=== PATIENT | male | born 1990 | race Caucasian/White ===

== ENCOUNTER 2023-08-28 03:32 | Emergency (ER) | payer OTHER, SELFPAY ==
[2023-08-28 03:33] VITALS: BP 139/85; PULSE 95; RESP 18; TEMP 36.3; O2SAT 95; BMI 35.1
[2023-08-28 05:07] LABS: Bacteria 0 SEEN /hpf (None Seen); Mucous, Urine 0 SEEN /hpf (<or=2+)
[2023-08-28 05:09] LABS: Color, Urine Yellow (Yellow); Glucose, Dipstick Normal (Normal); Ketone-Dipstick Negative (Negative); Leukocyte Esterase-Dipstick 100 /ul (Negative); Nitrite-Dipstick Negative (Negative); Occult Blood-Urine 25 /ul (Negative); Protein-Dipstick 30 mg/dl (Negative); Specific Gravity, Urine 1.025 (1.002-1.030); Urine Bilirubin Dipstick Negative (Negative); Urine Clarity Clear (Clear); Urine Urobilinogen Normal (Normal)
[2023-08-28 05:16] LABS: Red Blood Cells-Urine 5-10 SEEN /hpf (0-5); Squamous Epithelial Cells - UA 0-5 SEEN /hpf (0-5); White Blood Cells 10-25 SEEN /hpf (0-5)
--- NOTE | 2023-08-28 05:31 | EX.ED.DYSGE1 ---
HPI History of Present Illness Chief Complaint: Complaint Informant: patient Narrative Narrative: Patient is a 33-year-old male with past medical history of hypothyroidism. He states that over the last 2 to 3 days he has noticed increased frequency of urination and dysuria. He states there is no penile discharge or lesions or testicular swelling. He denies any trauma but states he is concerned he may have developed an STD and with this comes in for evaluation. [facility] Medical History (Updated 08/29/23 @ 08:[address] Paulo Gloria, DO) Hypothyroid Home Medications ?Medication ?Instructions ?Recorded ?Last Taken ?Type doxycycline hyclate 100 mg capsule 100 mg PO BID 7 days #14 caps 08/28/23 Unknown Rx levothyroxine 50 mcg capsule 50 mcg PO DAILY 08/28/23 Unknown History Allergy/AdvReac Type Severity Reaction Status Date / Time No Known Allergies Allergy Verified 08/28/23 03:38 Social History Smoking Status: Never smoker ROS ROS ED Constitutional Constitutional ED: Denies chills or fever(s) ENT ENT ED: Denies sore throat Cardiovascular Cardiovascular: Denies chest pain Respiratory/Chest Respiratory/Chest: Denies cough or dyspnea Gastrointestinal Gastrointestinal: Denies abdominal pain, diarrhea, nausea or vomiting Genitourinary Genitourinary ED: Reports dysuria and urinary frequency; Denies hematuria Musculoskeletal Musculoskeletal: Denies back pain or myalgias Integumentary Denies rash Neurologic Neurologic: Denies headache(s) Hematologic/Lymphatic Hematologic/Lymphatic: Denies easy bleeding or easy bruising EXAM Physical Exam Const Vital Signs: 08/28/23 03:33 Temperature 97.4 F L Temperature Source Temporal Pulse Rate 95 Respiratory Rate 18 Blood Pressure 139/85 H Blood Pressure Mean 103 Pulse Ox 95 Oxygen Delivery Method Room Air Positive well nourished, well developed and obese General Appearance ED: well developed; Negative for pallor Nutritional Appearance: obese HEENT HEENT Narrative: Normocephalic atraumatic Eyes PERRL and EOMs intact bilaterally General Eye ED: Negative for scleral icterus Neck supple Resp normal respiratory effort and clear to auscultation bilaterally Cardio regular rate and regular rhythm GI normal to inspection, nondistended, normoactive bowel sounds, non-tender, non-distended and no masses Auscultation: normoactive bowel sounds Palpation: soft Narrative: Patient deferred Back/Spine no CVA tenderness Extremity normal to inspection Neuro oriented x3, CN's II-XII intact bilaterally and no sensory deficits noted Sensorium / Orientation: alert Motor Exam: strength 5/5 throughout Psych mental status grossly normal Skin no rashes or lesions noted General Skin Exam: Negative for jaundice or pallor MDM MDM MDM Narrative Medical decision making narrative: Patient arrived to the ER complaining of urinary frequency and dysuria without penile discharge. Differential diagnosis is for UTI versus STD. A urine sample was obtained which shows no bacteria but white blood cells which could indicate developing infection. A gonorrhea chlamydia sample was sent off as this is most likely cause of his symptoms. As patient has symptoms and concern for STD he was treated with Rocephin and doxycycline. At this time otherwise there is no signs of systemic infection there is no need for further evaluation and he is otherwise safe for discharge. Lab Data Labs: Laboratory Results - last 24 hr 08/28/23 05:01 Urine Color Yellow Urine Clarity Clear Urine pH 5.0 Ur Specific [place] 1.025 Urine Protein 30 H Urine Glucose (UA) Normal Urine Ketones Negative Urine Occult Blood 25 H Urine Nitrite Negative Urine Bilirubin Negative Urine Urobilinogen Normal Ur Leukocyte Esterase 100 H Urine RBC 5-10 SEEN Urine WBC 10-25 SEEN Ur Squamous Epith Cells 0-5 SEEN Urine Bacteria 0 SEEN Urine Mucus 0 SEEN Discharge Plan Triage Chief Complaint: Complaint ED Provider: Paulo Gloria Dx/Rx/DC Orders Clinical Impression: Dysuria, Hypothyroidism Instructions: Dysuria, ED STI Male Treated Prescriptions: New doxycycline hyclate 100 mg capsule 100 mg PO BID 7 Days Qty: 14 0RF No Action levothyroxine 50 mcg capsule 50 mcg PO DAILY Primary Care Provider: Familia Yeh NP Referrals: Familia Yeh NP, [employer] [Primary Care Provider] - Activity Restrictions/Additional Instructions: Please refrain from sexual activity for the next 7 days and return to the ER if you are having any further concerns or worsening of symptoms despite treatment Print Language: [place] Disposition Disposition: Home, Self Care Discharge Date/Time: 08/28/23 06:15
[2023-08-28 05:33] VITALS: PULSE 83; RESP 18
[2023-08-28] MEDS: Doxycycline 100 MG CAPSULE PO (05:52)
[2023-08-28] MEDS: Ceftriaxone 500 MG Vial IM (05:52)
[2023-08-28 05:55] VITALS: BP 143/95; PULSE 83; RESP 18; TEMP 36.3; O2SAT 98
== END 2023-08-28 06:15 | disposition home or self-care (01) ==
PROVIDERS: Emergency Provider Emergency Medicine; PCP Nurse Practitioner Family; Visit Provider Emergency Medicine
DX: R30.0 Dysuria (principal); E03.9 Hypothyroidism, unspecified; Z79.899 Other long term (current) drug therapy
CPT/HCPCS: 81001; 87491; 87591; 96372; 99282